=== PATIENT | male | born 1985 | race Two or more races ===

== ENCOUNTER 2017-12-08 17:17 | Emergency (ER) | payer OTHER ==
[2017-12-08 17:37] LABS: ADD MAN DIFF? NO; BASO # 0.1 x10^3/uL (0.0-0.2); BASO % 1 % (0-3); EOS % 0 % (0-3); HEMATOCRIT 44.6 % (39.0-53.0); HEMOGLOBIN 15.5 g/dL (13.0-17.5); LYMPH # 2.7 x10^3/uL (1.0-4.8); LYMPH % 25 % (24-48); MEAN CORPUSCULAR HEMOGLOBIN 30 pg (25-35); MEAN CORPUSCULAR HGB CONC 35 g/dL (31-37); MEAN CORPUSCULAR VOLUME 87 fL (79-100); MONO # 0.9 x10^3/uL (0.0-1.1); MONO % 8 % (0-9); NEUT # 7.3 x10^3uL (1.8-7.7); NEUT % 66 % (31-73); PLATELET COUNT 367 x10^3/uL (140-400); RED BLOOD COUNT 5.11 x10^6/uL (4.30-5.70); RED CELL DISTRIBUTION WIDTH 13.3 % (11.5-14.5)
[2017-12-08] MEDS: IV NORMAL SALINE 1000ML BAG 1,000 ML IV (17:46)
[2017-12-08 17:49] LABS: ANION GAP 22 (6-14); BLOOD UREA NITROGEN 11 mg/dL (8-26); BUN/CREATININE RATIO 10 (6-20); CALCIUM 9.8 mg/dL (8.5-10.1); CARBON DIOXIDE 17 mmol/L (21-32); CHLORIDE 101 mmol/L (98-107); CREATININE 1.1 mg/dL (0.7-1.3); GFR 76.6; GLUCOSE 117 mg/dL (70-99); POTASSIUM 3.1 mmol/L (3.5-5.1); SODIUM 140 mmol/L (136-145)
[2017-12-08 17:55] LABS: ALBUMIN 4.3 g/dL (3.4-5.0); ALBUMIN/GLOBULIN RATIO 1.2 (1.0-1.7); ALK PHOS 83 U/L (46-116); ALT (SGPT) 41 U/L (16-63); AST (SGOT) 26 U/L (15-37); MAGNESIUM 1.6 mg/dL (1.8-2.4); TOTAL BILIRUBIN 0.7 mg/dL (0.2-1.0)
[2017-12-08 17:57] LABS: TROPONINI < 0.017 ng/mL (0.000-0.055)
[2017-12-08 18:04] LABS: NT-PRO BNP 24 pg/mL (0-124)
[2017-12-08 18:04] LABS: CKMB INDEX 0.6 % (0-4); CKMB MASS 0.5 ng/mL (0.0-3.6); CREATINE KINASE 90 U/L (39-308)
[2017-12-08] MEDS: ASPIRIN CHEWABLE 81 MG TABLET. PO (18:25)
[2017-12-08 18:37] LABS: BILIRUBIN,URINE NEGATIVE (NEG); CLARITY,URINE CLEAR; COLOR,URINE YELLOW; GLUCOSE,URINE NEGATIVE (NEG); NITRITE,URINE NEGATIVE (NEG); PH,URINE 5.5; PROTEIN,URINE NEGATIVE (NEG-TRACE); UROBILINOGEN,URINE 0.2 mg/dL (0.2 mg/dL)
[2017-12-08 18:47] LABS: BACTERIA,URINE 0 /HPF (0-FEW); HYALINE CASTS, URINE FEW /HPF; RBC,URINE 0 /HPF (0-2); WBC,URINE 0 /HPF (0-4)
[2017-12-08 18:49] LABS: BARBITURATES NEG (NEG); BENZODIAZEPINES NEG (NEG); CANNABINOIDS POS (NEG); COCAINE POS (NEG); METHADONE NEG (NEG); OPIATES NEG (NEG); PHENCYCLIDINE NEG (NEG)
[2017-12-08 18:55] LABS: AMPHETAMINE/METHAMPHETAMINE NEG (NEG); ETHANOL, URINE POS (NEG)
[2017-12-08 20:02] LABS: TROPONINI < 0.017 ng/mL (0.000-0.055)
[2017-12-08 20:09] LABS: CKMB MASS < 0.5 ng/mL (0.0-3.6); CREATINE KINASE 69 U/L (39-308)
[2017-12-08] MEDS: POTASSIUM CHLORIDE 20 MEQ TABLET.ER. PO (20:32)
== END 2017-12-08 20:45 | disposition home or self-care (01) ==
LOC: ER 17:17
DX: R07.89 Other chest pain (principal); F14.920 Cocaine use, unspecified with intoxication, uncomplicated; F12.10 Cannabis abuse, uncomplicated; F11.10 Opioid abuse, uncomplicated; Z79.82 Long term (current) use of aspirin
CPT/HCPCS: 36415; 71045; 80053; 80307; 81001; 82553; 83735; 83880; 84484; 85025; 93005; 96361; 96374; 99285-25; J2060; J7030